=== PATIENT | male | born 1985 | race Caucasian/White ===

== ENCOUNTER 2025-01-28 09:34 | Emergency (ER) | payer SELFPAY ==
[2025-01-28 09:38] VITALS: RESP 20; BMI 35.4
[2025-01-28] MEDS ORDERED: ASPIRIN 81 MG CHEWABLE TABLETS ONE (10:18)
[2025-01-28] MEDS ORDERED: KETOROLAC TROMETHAMINE 15 MG/ML VIAL ONE (10:18)
[2025-01-28] MEDS ORDERED: ACETAMINOPHEN INJECTION 100 ML ONE (10:18)
[2025-01-28] MEDS: KETOROLAC TROMETHAMINE 15 MG/ML VIAL IVPUSH ONE (10:26)
[2025-01-28] MEDS: ACETAMINOPHEN 500 MG TABLET (FP) PO ONE (10:26)
[2025-01-28] MEDS: ASPIRIN 81 MG CHEWABLE TABLETS PO ONE (10:26)
[2025-01-28 10:50] LABS: MCHC 34.8 g/dl (32.3-36.5); MEAN CELL VOLUME 90.4 fl (79.0-92.2); MEAN PLT VOLUME 10.8 fl (9.4-12.4); RDW 11.9 % (12.1-15.9)
[2025-01-28 10:57] LABS: INR 1.08 (0.83-1.09); PROTHROMBIN TIME (PATIENT) 11.8 SEC (9.7-13.0)
[2025-01-28 11:00] LABS: ACTIVATED PTT 28.9 SECONDS (25.2-36.5)
[2025-01-28 11:29] LABS: GLUCOSE,RANDOM 98 mg/dL (74-106); TOT PROT 7.9 g/dl (6.4-8.2)
[2025-01-28 11:30] LABS: CO2 26 mmol/L (21-32)
[2025-01-28 11:32] LABS: ALK PHOS 72 U/L (40-150)
[2025-01-28 11:34] LABS: SGPT/ALT 71 U/L (0-55)
[2025-01-28 11:35] LABS: CREATININE 1.32 mg/dL (0.55-1.3); SGOT/AST 28 U/L (5-34)
[2025-01-28 11:46] LABS: HCV DIAGNOSTIC IN-HOUSE W/RFLX NON-REACTIVE (NONREACTIVE)
[2025-01-28 11:47] LABS: HIV INTERPRETATION NEGATIVE (NEGATIVE)
[2025-01-28] MEDS: SODIUM CHLORIDE 0.9% 500 ML INFUS.BAG IV ONE (12:24)
[2025-01-28 14:55] VITALS: BP 120/73; PULSE 74; TEMP 98.5
== END 2025-01-28 15:01 | disposition home or self-care (01) ==
LOC: JER 09:34
PROC: 3E0333Z Introduction of Anti-inflammatory into Peripheral Vein, Percutaneous Approach (ICD-10-PCS; principal; 2025-01-28)
DX: R07.89 Other chest pain (principal); R42 Dizziness and giddiness; R06.02 Shortness of breath
CPT/HCPCS: 36415; 71046-TC-FY; 80053; 82550; 83735; 84484; 85027; 85610; 85730; 86803; 87389; 93005; 93010; 93308; 99285-25